=== PATIENT | female | born 1955 | race Caucasian/White ===

== ENCOUNTER 2022-07-06 00:16 | Emergency (ER) | payer OTHER ==
[2022-07-06 00:49] VITALS: BMI 20.2
[2022-07-06] MEDS ORDERED: VANCOMYCIN 1 GM in D5W (PRE-DOCKED) 1,000 MG/250 ML IVPB ONE (02:06)
[2022-07-06] MEDS ORDERED: PIPERACILLIN/TAZOB 4.5 GM 4.5 GM in DEXTROSE 5%-WATER 100 ML IVPB ONE (02:06)
[2022-07-06 02:08] LABS: BASO % 0.4 % (0-2.0); EOS % 0.4 % (0-4.5); HEMATOCRIT 34.9 % (32.4-45.2); HEMOGLOBIN 10.9 GM/dL (10.7-15.3); LYMPH % 10.2 % (8-40); MCHC 31.1 g/dl (32.0-36.0); MEAN PLT VOLUME 8.4 fl (7.5-11.1); MONO % 7.6 % (3.8-10.2); NEUT % 81.4 % (42.8-82.8); PLATELET COUNT 115 10^3/uL (134-434); RBC 3.88 M/mm3 (3.60-5.2); RDW 22.2 % (11.6-15.6)
[2022-07-06] MEDS ORDERED: PIPERACILLIN/TAZOB 4.5 GM 4.5 GM/100 ML BAG IVPB ONE (02:17)
[2022-07-06 02:19] LABS: INR 1.07 (0.83-1.09); PROTHROMBIN TIME (PATIENT) 12.4 SEC (9.7-13.0)
[2022-07-06 02:22] LABS: ACTIVATED PTT 25.1 SECONDS (25.2-36.5)
[2022-07-06 02:37] LABS: ALBUMIN 2.6 g/dl (3.4-5.0); CALCIUM 9.8 mg/dL (8.5-10.1)
[2022-07-06 02:38] LABS: BLOOD UREA NITROGEN 31.5 mg/dL (7-18); MAGNESIUM 2.2 mg/dL (1.8-2.4)
[2022-07-06 02:41] LABS: CREATININE 4.9 mg/dL (0.55-1.3)
[2022-07-06 02:42] LABS: BILIRUBIN,TOTAL 0.3 mg/dL (0.2-1); TOT PROT 7.2 g/dl (6.4-8.2)
[2022-07-06] MEDS ORDERED: VANCOMYCIN/WATER FOR INJ (PEG) 1,000 MG/200 ML BAG IVPB ONE (03:25)
[2022-07-06 03:45] LABS: ANISOCYTOSIS 1+; HELMET CELLS 1+; MACROCYTOSIS 1+; OVALOCYTE 1+; TEAR DROP CELLS 1+
[2022-07-06 14:19] VITALS: RESP 20
[2022-07-06 15:28] VITALS: TEMP 98.1
[2022-07-06 18:02] VITALS: BP 135/68; PULSE 105
== END 2022-07-06 16:50 | disposition short-term general hospital (02) ==
LOC: JER 00:16
PROC: 3E033GC Introduction of Other Therapeutic Substance into Peripheral Vein, Percutaneous Approach (ICD-10-PCS; principal; 2022-07-06)
DX: R09.02 Hypoxemia (principal); R00.0 Tachycardia, unspecified; Z94.1 Heart transplant status
CPT/HCPCS: 0241U-QW; 36415; 71045-TC-FY; 80053; 83735; 83880; 84484; 85025; 85610; 85730; 87040; 93005; 93010; 99285-25

== ENCOUNTER 2022-08-29 10:20 | Emergency (ER) | payer OTHER ==
[2022-08-29 11:06] LABS: VENOUS BASE EXCESS -3.4 mmol/L (-2-2); VENOUS O2 SATURATION 38.7 % (70-80); VENOUS PCO2 51.8 mmHg (38-52); VENOUS PH 7.279 (7.310-7.410)
[2022-08-29 11:17] LABS: BASO % 0.2 % (0-2.0); EOS % 0.7 % (0-4.5); HEMATOCRIT 34.1 % (32.4-45.2); HEMOGLOBIN 10.8 GM/dL (10.7-15.3); INR 1.05 (0.83-1.09); LYMPH % 42.4 % (8-40); MCH 27.3 pg (25.7-33.7); MCHC 31.7 g/dl (32.0-36.0); MEAN PLT VOLUME 7.8 fl (7.5-11.1); MONO % 6.6 % (3.8-10.2); NEUT % 50.1 % (42.8-82.8); PLATELET COUNT 157 10^3/uL (134-434); PROTHROMBIN TIME (PATIENT) 12.2 SEC (9.7-13.0); RBC 3.97 M/mm3 (3.60-5.2); RDW 17.7 % (11.6-15.6); WHITE BLOOD COUNT 7.8 K/mm3 (4.0-10.0)
[2022-08-29 11:20] VITALS: TEMP 97.4
[2022-08-29 11:20] LABS: ACTIVATED PTT 27.7 SECONDS (25.2-36.5)
[2022-08-29 11:22] LABS: EPI CELLS 7 /uL (0-25.1); HYALINE CASTS 1 /uL (0-3.1); URINE APPEARANCE CLOUDY; URINE BACTERIA 234 /uL (0-1359); URINE BILIRUBIN NEGATIVE (NEGATIVE); URINE COLOR YELLOW; URINE GLUCOSE (UA) NEGATIVE (NEGATIVE); URINE KETONE NEGATIVE (NEGATIVE); URINE LEUK ESTERASE 3+ (NEGATIVE); URINE NITRITE NEGATIVE (NEGATIVE); URINE PROTEIN 3+ (NEGATIVE); URINE RBC 60 /uL (0-23.9); URINE UROBILINOGEN 0.2 mg/dL (0.2-1.0); URINE WBC 303 /uL (0-25.8)
[2022-08-29 11:37] LABS: LACTIC ACID 3.1 mmol/L (0.4-2.0)
[2022-08-29 11:44] LABS: ALBUMIN 2.8 g/dl (3.4-5.0); BLOOD UREA NITROGEN 27.2 mg/dL (7-18); CALCIUM 9.6 mg/dL (8.5-10.1)
[2022-08-29 11:48] LABS: CREATININE 4.8 mg/dL (0.55-1.3)
[2022-08-29 11:49] LABS: BILIRUBIN,TOTAL 0.4 mg/dL (0.2-1); TOT PROT 7.7 g/dl (6.4-8.2)
[2022-08-29] MEDS ORDERED: VANCOMYCIN 1 GM in D5W (PRE-DOCKED) 1,000 MG/250 ML IVPB ONE (12:12)
[2022-08-29] MEDS ORDERED: MEROPENEM 500 MG in DEXTROSE 5%-WATER 100 ML IVPB ONE (12:12)
[2022-08-29] MEDS ORDERED: VANCOMYCIN/WATER FOR INJ (PEG) 1,000 MG/200 ML BAG IVPB ONE (12:16)
[2022-08-29] MEDS ORDERED: MEROPENEM 500 MG VIAL (RESTRICTED TO ID) IVPB ONE (12:16)
[2022-08-29] MEDS ORDERED: DEXTROSE 5%-WATER 100 ML IVPB ONE (12:16)
[2022-08-29 13:18] VITALS: BP 112/69; PULSE 112; RESP 18
== END 2022-08-29 14:00 | disposition short-term general hospital (02) ==
LOC: JER 10:20
PROC: 3E03329 Introduction of Other Anti-infective into Peripheral Vein, Percutaneous Approach (ICD-10-PCS; principal; 2022-08-29)
PROC: 3E033GC Introduction of Other Therapeutic Substance into Peripheral Vein, Percutaneous Approach (ICD-10-PCS; 2022-08-29)
PROC: 3E03329 Introduction of Other Anti-infective into Peripheral Vein, Percutaneous Approach (ICD-10-PCS; 2022-08-29)
DX: R06.02 Shortness of breath (principal); R00.0 Tachycardia, unspecified; Z20.822 Contact with and (suspected) exposure to COVID-19
CPT/HCPCS: 0241U-QW; 36415; 71045-TC-FY; 80053; 81003; 82550; 82553; 82803; 83605; 84484; 85025; 85610; 85730; 86850; 86900; 86901; 87040; 87086; 93005; 93010; 99285-25

== ENCOUNTER 2024-03-10 09:23 | Emergency (ER) | payer OTHER ==
[2024-03-10] MEDS ORDERED: ACETYLCYSTEINE 20% 200MG/ML 4 ML VIAL *FOR ORAL / INH USE ONLY ONE (10:18)
[2024-03-10] MEDS ORDERED: ALBUTEROL SO4 2.5/IPRATROPIUM 0.5 INH SOL 3 ML VIAL.NEB. NEB ONE (10:25)
[2024-03-10 10:26] VITALS: TEMP 98.7; BMI 19.4
[2024-03-10 10:27] LABS: VENOUS BASE EXCESS 1.8 mmol/L (-2-2); VENOUS O2 SATURATION 69.8 % (70-80); VENOUS PCO2 46.1 mmHg (38-52); VENOUS PH 7.388 (7.310-7.410)
[2024-03-10 10:28] LABS: BASO % 0.6 % (0-2.0); EOS % 0.1 % (0-4.5); HEMATOCRIT 28.4 % (32.4-45.2); HEMOGLOBIN 9.4 GM/dL (10.7-15.3); LYMPH % 14.8 % (8-40); MCH 31.3 pg (25.7-33.7); MEAN CELL VOLUME 95.1 fl (80-96); MEAN PLT VOLUME 8.2 fl (7.5-11.1); MONO % 6.1 % (3.8-10.2); NEUT % 78.4 % (42.8-82.8); PLATELET COUNT 257 10^3/uL (134-434); RBC 2.99 M/mm3 (3.60-5.2); RDW 16.5 % (11.6-15.6); WHITE BLOOD COUNT 3.6 K/mm3 (4.0-10.0)
[2024-03-10] MEDS: ALBUTEROL SO4 2.5/IPRATROPIUM 0.5 INH SOL 3 ML VIAL.NEB. NEB ONE (10:36)
[2024-03-10 10:39] LABS: INR 1.15 (0.83-1.09); PROTHROMBIN TIME (PATIENT) 12.9 SEC (9.7-13.0)
[2024-03-10] MEDS: ACETYLCYSTEINE 20% 200MG/ML 30 ML VIAL *FOR ORAL / INH USE ONLY NEB ONE (10:50)
[2024-03-10 11:10] LABS: POTASSIUM 3.9 mmol/L (3.5-5.1)
[2024-03-10] MEDS ORDERED: MEROPENEM 500 MG VIAL (RESTRICTED TO ID) IVPB ONE (11:11)
[2024-03-10 11:12] LABS: BLOOD UREA NITROGEN 15.9 mg/dL (7-18); CALCIUM 8.9 mg/dL (8.5-10.1); MAGNESIUM 1.9 mg/dL (1.8-2.4)
[2024-03-10 11:13] LABS: ALBUMIN 3.5 g/dl (3.4-5.0)
[2024-03-10 11:15] LABS: CREATININE 2.8 mg/dL (0.55-1.3)
[2024-03-10 11:17] LABS: BILIRUBIN,TOTAL 0.5 mg/dL (0.2-1); TOT PROT 8.3 g/dl (6.4-8.2)
[2024-03-10] MEDS: MEROPENEM 500 MG in DEXTROSE 5%-WATER 100 ML IVPB ONE (11:32)
[2024-03-10] MEDS ORDERED: hydrALAZINE HCL 25 MG TABLET (FP) ONE (12:14)
[2024-03-10] MEDS: hydrALAZINE HCL 25 MG TABLET (FP) PO ONE (12:18)
[2024-03-10] MEDS ORDERED: VANCOMYCIN 1 GRAM (PRE-DOCKED) 1,000 MG/250 ML BAG IVPB ONE (12:38)
[2024-03-10] MEDS: VANCOMYCIN 1,000 MG in DEXTROSE 5%-WATER - 250 ML IVPB ONE (12:59)
[2024-03-10 14:30] VITALS: BP 172/54; PULSE 62; RESP 18
[2024-03-10] MEDS ORDERED: TACROLIMUS 0.5 MG CAPSULE PO ONE (14:42)
[2024-03-10] MEDS: TACROLIMUS ANHYDROUS 1 MG CAPSULE PO ONE (15:39)
[2024-03-10] MEDS ORDERED: ALBUTEROL SO4 0.083% IH SOL 2.5 MG/3 ML VIAL.NEB. NEB SCH (20:00)
== END 2024-03-10 16:50 | disposition short-term general hospital (02) ==
LOC: JER 09:23
DX: J18.9 Pneumonia, unspecified organism (principal); J96.01 Acute respiratory failure with hypoxia; Z94.9 Transplanted organ and tissue status, unspecified
CPT/HCPCS: 0241U-QW; 36415; 71045-TC-FY; 80053; 82803; 83735; 84484; 85025; 85610; 87070; 87186; 87205; 93005; 93010; 99285-25